=== PATIENT | male | born 1955 | race African-American/Black ===

== ENCOUNTER → 2018-04-01 | Day surgery (SDC) | payer MEDICAID, OTHER ==
[~2018-04-01] VITALS: Ht 180.3 cm; Wt 93.6 kg
[~2018-04-01] MED LIST: ASCO500 PO; BUPIVACAINE HCL/PF 0.75% 10 ML VIAL IARTIC ONE; BUPIVACAINE HCL/PF 0.75% 10 ML VIAL ONE; CYAN500 PO; GABA-531 PO; IBUP-2071 PO; IOHEXOL 300 MG/ML 10 ML VIAL IARTIC ONE; IOHEXOL 300 MG/ML 10 ML VIAL ONE; LEVO175T9 PO; LIDOCAINE HCL/PF 1% 30 ML VIAL INJ ONE; LIDOCAINE HCL/PF 1% 30 ML VIAL ONE; OMEG-50 PO; SODIUM CHLORIDE 0.9% 1,000 ML IV ONE; TRIAMCINOLONE ACETONIDE 40 MG/ML VIAL IARTIC ONE; TRIAMCINOLONE ACETONIDE 40 MG/ML VIAL ONE
[2018-04-01 11:21] VITALS: BP 153/100
[2018-04-01 11:29] VITALS: BP 155/86
== END | disposition home or self-care (01) ==
LOC: SDS 09:12
PROVIDERS: ATTEND Physical Medicine & Rehabilitation Pain Medicine
DX: M51.16 Intervertebral disc disorders with radiculopathy, lumbar region (principal); M48.061 Spinal stenosis, lumbar region without neurogenic claudication; Z79.1 Long term (current) use of non-steroidal anti-inflammatories (NSAID); Z79.899 Other long term (current) drug therapy
CPT/HCPCS: 62323; 72275; 99152; J3301; J3490 ×2; J7030; Q9967